=== PATIENT | female | born 1955 | race Caucasian/White ===

== ENCOUNTER → 2017-01-17 | Outpatient (CLI) | payer BC ==
[~2017-01-17] MED LIST: AMLO1CAP4 PO; AMLO1CAP5 PO; ASP81TEC PO; CHOL10007 PO; CRAN500C4 PO; DIPH25CA79 PO; KETO10TA PO; METO-272 PO; METO-274 PO; NITR-65 PO; PHEN-640 PO; ROSU20TA14 PO
--- NOTE | 2017-01-17 17:08 | Diagnostic Imaging Report ---
EXAMINATION: Supine view of the abdomen. INDICATION: Bilateral stones. FINDINGS: There is a 1.5 cm calcification in the right flank probably representing a right kidney stone. Numerous other subcentimeter calcifications mostly below 5 mm in size are seen in both flanks presumably related to bilateral kidney stones. There is a 9 mm calcification in the left side of the pelvis suspected to be within the distal left ureter. Other pelvic calcifications are probably phleboliths. Surgical clips in the upper right abdomen seen. IMPRESSION: 1. A 9 mm calcification in the left side of the pelvis is presumably a distal left ureteric stone. 2. Bilateral numerous flank calcifications are probably related to kidney stones. Dictated by: Dictated on workstation # [id number]
== END ==
LOC: RAD 14:21
PROVIDERS: ATTEND Urology
DX: N20.0 Calculus of kidney (principal)
CPT/HCPCS: 74000

== ENCOUNTER 2017-01-24 13:25 | Outpatient (CLI) | payer BC ==
[~2017-01-24] VITALS: Ht 170.2 cm; Wt 113.4 kg
[2017-01-24] MEDS ORDERED: MELA5CAP PO (15:11)
[2017-01-25] MEDS ORDERED: NITR-65 PO (11:39)
[2017-01-25] MEDS ORDERED: HYDR-3874 PO (11:39)
[2017-01-25] MEDS ORDERED: TAMS0.4C98 PO (11:39)
== END 2017-01-24 16:21 ==
LOC: PREOP 13:25
PROVIDERS: ATTEND Urology
DX: Z01.818 Encounter for other preprocedural examination (principal); N20.0 Calculus of kidney; N20.1 Calculus of ureter

== ENCOUNTER 2017-01-25 08:02 | Day surgery (SDC) | payer BC ==
[~2017-01-25] VITALS: Ht 170.2 cm; Wt 113.4 kg
[~2017-01-25 08:02] MED LIST changes: +MELA5CAP PO
--- NOTE | 2017-01-25 08:29 | Progress Note-Pre Operative ---
Pre-Operative Progress Note H&P Reviewed The H&P was reviewed, patient examined and no changes noted. Date Seen by Provider: Jan 25, 2017 Time Seen by Provider: 08:28 Date H&P Reviewed: Jan 25, 2017 Time H&P Reviewed: 08:28 Pre-Operative Diagnosis: LT DISTAL AND BILATERAL RENAL STONES MARTI CANO MD Jan 25, 2017 8:28 am
[2017-01-25] MEDS ORDERED: CATHETER FLUSH 10 ML SYR IV PRN (08:30)
[2017-01-25] MEDS ORDERED: cefTRIAXone 1 GM/NS 50 ML IVPB IV ONE ×2 (08:30)
--- NOTE | 2017-01-25 09:06 | Diagnostic Imaging Report ---
EXAM: ABDOMEN/KUB 1VIEW. INDICATION: ESWL. COMPARISON: Abdominal radiograph 01/17/2017. FINDINGS: Numerous calcifications in the region of both kidneys, the largest measuring up to 1.5 cm in the region of the lower pole of the right kidney. Numerous calcifications in the pelvis. The largest may be in the region of the left ureterovesicular junction and measures up to 0.9 cm. Nonspecific bowel gas pattern. No acute osseous findings. Moderate degenerative changes in both hips. Cholecystectomy clips. IMPRESSION: Stable calcifications in the region of both kidneys and in the pelvis. Dictated by: Dictated on workstation # [id number]
[2017-01-25] MEDS ORDERED: ONDANSETRON 4 MG/2 ML (SDV) Z0FRAN ONE (09:14)
[2017-01-25] MEDS ORDERED: proPOfol 200 MG/20 ML (DIPRIVAN) VIAL IV ONE (09:14)
[2017-01-25] MEDS ORDERED: SEVOFLURANE (ULTANE) 15 ML INHAL SOLN ONE ×3 (09:14→09:45)
[2017-01-25] MEDS ORDERED: LIDOCAINE PF 2% 5 ML (XYLOCAINE) VIAL ONE (09:14)
[2017-01-25] MEDS ORDERED: fentaNYL INJECTION 100 MCG/2 ML AMP ONE (09:15)
[2017-01-25] MEDS ORDERED: MIDAZOLAM 2 MG/2 ML (VERSED) VIAL ONE (09:15)
[2017-01-25 09:30] VITALS: BP 155/73
[2017-01-25] MEDS ORDERED: LACTATED RINGERS 1,000 ML IV SCH (09:30)
[2017-01-25] MEDS ORDERED: LACTATED RINGERS 1,000 ML IV ONE (09:45)
--- NOTE | 2017-01-25 10:28 | Progress Note-Post Operative ---
Post-Operative Progess Note Surgeon (s)/Healthcare Consulting Manager (s) Surgeon MARTI CANO MD Healthcare Consulting Manager: N/A Pre-Operative Diagnosis LT DISTAL AND BILATERAL RENAL STONES Post-Operative Diagnosis SAME, AND VAGINAL PROLAPSE Procedure & Operative Findings Date of Procedure 01/25/17 Procedure Performed/Findings CYSTO, LT URETEROSCOPY WITH STONE LITHOTRIPSY Anesthesia Type GENERAL Estimated Blood Loss Estimated blood loss (mL): N/A Specimens/Packing Specimens Removed N/A Packing: N/A MARTI CANO MD Jan 25, 2017 10:28 am
--- NOTE | 2017-01-25 10:34 | Discharge Inst-Urology ---
Discharge Inst-Urology Discharge Medications New, Converted, or Re-newed RX: RX on Chart Patient Instructions/Follow Up Plan Please make appointment to been seen in office either Tuesday or Tuesday In 48 hrs, if no bleeding, may resume ASA, and stop it Tuesday Increase oral fluids for 48 hours and then as needed. Diet and Activity as tolerated. If questions or concerns contact your physician Or seek help at emergency department. MARTI CANO MD Jan 25, 2017 10:34 am
[2017-01-25 11:20] VITALS: BP 148/73
[2017-01-25] MEDS ORDERED: TAMS0.4C98 PO (11:39)
[2017-01-25] MEDS ORDERED: NITR-65 PO (11:39)
[2017-01-25] MEDS ORDERED: HYDR-3874 PO (11:39)
[2017-01-25 11:50] VITALS: BP 150/74
[2017-01-25 12:15] VITALS: BP 150/74
--- NOTE | 2017-01-25 15:22 | OPERATIVE REPORT ---
PROCEDURE PHYSICIAN: MARTI CANO DATE OF PROCEDURE: 01/25/2017 PREOPERATIVE DIAGNOSIS: Left distal ureteral and bilateral renal stones. POSTOPERATIVE DIAGNOSES: 1. Left distal ureteral and bilateral renal stones. 2. Vaginal prolapse. OPERATION PERFORMED: 1. Cystoscopy. 2. Left ureteroscopy with stone lithotripsy. SURGEON: Phoebe. ANESTHESIA: General. COMPLICATIONS: None. PROCEDURE: Under satisfactory general anesthesia, the Patient in the lithotomy position, the genitalia were prepped and draped in the usual sterile fashion. Noticed a vaginal prolapse. The cystoscope was introduced in the bladder and was essentially normal except for the prolapse. I dilated the left ureteral orifice, intramural portion ___ the stone to accommodate a 6.9-[place] semirigid ureteroscope. The stone was visualized impacted in the wall of the ureter. I broke it up completely with the lithoclast, disengage it, it was impacted and very small fragments flowed into the bladder. I went beyond the stone. There were no further stone proximally. I removed the ureteroscope, inserted the cystoscope, empty the bladder. The patient tolerated the procedure and anesthesia well and was sent to recovery room in stable condition. PLAN: We will talk to her about the right renal stone if she wants it blasted. The ones on the left side are too small. Job ID: [id number] Dictated Date: 01/25/2017 10:36:06 Battery Charger Date: 01/25/2017 15:07:50 / malcolm
== END 2017-01-25 12:15 | disposition home or self-care (01) ==
LOC: SDC 08:02
PROVIDERS: ATTEND Urology
DX: N20.2 Calculus of kidney with calculus of ureter (principal); N81.10 Cystocele, unspecified; I10 Essential (primary) hypertension; Z79.899 Other long term (current) drug therapy
CPT/HCPCS: 74000; 87081

== ENCOUNTER → 2017-02-08 | Outpatient (CLI) | payer BC ==
[~2017-02-08] MED LIST changes: +HYDR-3874 PO; +HYDR-3875 PO; -METO-274 PO; +METO-395 PO; +NITR-68 PO; +ROSU20TA28 PO; +TAMS0.4C98 PO; +TRAM-42 PO; +TRAM50TA2 PO
== END ==
LOC: PREOP 02-02 05:33
PROVIDERS: ATTEND Urology
DX: Z01.818 Encounter for other preprocedural examination (principal); N20.2 Calculus of kidney with calculus of ureter

== ENCOUNTER → 2017-02-11 | Outpatient (CLI) | payer BC ==
--- NOTE | 2017-02-11 17:53 | Diagnostic Imaging Report ---
INDICATION: Nephrolithiasis. KUB at 12:05 p.m. FINDINGS: There is bilateral nephrolithiasis. Largest on the right kidney is in the inferior pole measuring 1 cm in diameter. There are several smaller calcifications in the upper and lower calyces of the right kidney ranging in size from 1-3 mm in diameter. There are also several small calcifications in the upper and lower pole calyces of the left kidney the largest measuring 3 mm in diameter. IMPRESSION: Bilateral nephrolithiasis. No appreciable change since 01/25/2017. Dictated by: Dictated on workstation # [id number]
== END ==
LOC: RAD 10:45
PROVIDERS: ATTEND Urology
DX: N20.0 Calculus of kidney (principal); Z87.442 Personal history of urinary calculi
CPT/HCPCS: 74000

== ENCOUNTER 2017-02-17 05:40 | Outpatient (CLI) | payer BC ==
[~2017-02-17] VITALS: Ht 170.2 cm; Wt 113.4 kg
[~2017-02-17 05:40] MED LIST changes: -HYDR-3875 PO; -NITR-68 PO; -ROSU20TA28 PO; -TRAM-42 PO; -TRAM50TA2 PO
[2017-04-05] MEDS ORDERED: ROSU20TA28 PO (10:49)
[2017-04-19] MEDS ORDERED: NITR-68 PO (13:03)
== END 2017-02-17 14:29 ==
LOC: PREOP 05:40
PROVIDERS: ATTEND Urology
DX: Z01.818 Encounter for other preprocedural examination (principal); N20.0 Calculus of kidney

== ENCOUNTER 2017-02-22 07:01 | Day surgery (SDC) | payer BC ==
[~2017-02-22] VITALS: Ht 170.2 cm; Wt 113.4 kg
--- NOTE | 2017-02-22 07:00 | Progress Note-Pre Operative ---
Pre-Operative Progress Note H&P Reviewed The H&P was reviewed, patient examined and no changes noted. Date Seen by Provider: Feb 22, 2017 Time Seen by Provider: 07:16 Date H&P Reviewed: Feb 22, 2017 Time H&P Reviewed: 07:16 Pre-Operative Diagnosis: RT RENAL STONE, AND BILATERAL RENAL STONES MARTI CANO MD Feb 22, 2017 7:00 am
[~2017-02-22 07:01] MED LIST changes: +METO-274 PO; -METO-395 PO
[2017-02-22] MEDS ORDERED: NS (IVPB) 50 ML ONE (07:43)
[2017-02-22] MEDS ORDERED: cefTRIAXone 1 GM (ROCEPHIN) VIAL ONE (07:43)
[2017-02-22] MEDS ORDERED: cefTRIAXone 1 GM/NS 50 ML IVPB IV ONE ×2 (08:00)
[2017-02-22] MEDS ORDERED: CATHETER FLUSH 10 ML SYR IV PRN (08:00)
--- NOTE | 2017-02-22 08:03 | Diagnostic Imaging Report ---
INDICATION: Nephrolithiasis. Comparison is made with prior examination from 02/11/17. FINDINGS: There are innumerable persistent calcifications in the kidneys bilaterally. The largest is in the inferior pole of the right kidney and measures approximately 1 cm. The bowel gas pattern is nonspecific. The osseous structures are unremarkable. IMPRESSION: Marked bilateral nephrolithiasis with the largest discrete stone inferiorly on the right measuring approximately 1 cm. Dictated by: Dictated on workstation # [id number]
[2017-02-22 08:21] VITALS: BP 190/93
[2017-02-22] MEDS: LACTATED RINGERS 1,000 ML IV PRN ×2 (08:23→09:30)
[2017-02-22] MEDS ORDERED: MIDAZOLAM 2 MG/2 ML (VERSED) VIAL ONE (08:40)
[2017-02-22] MEDS ORDERED: ONDANSETRON 4 MG/2 ML (SDV) Z0FRAN ONE (08:40)
[2017-02-22] MEDS ORDERED: LIDOCAINE PF 2% 5 ML (XYLOCAINE) VIAL ONE (08:40)
[2017-02-22] MEDS ORDERED: fentaNYL INJECTION 100 MCG/2 ML AMP ONE (08:40)
[2017-02-22] MEDS ORDERED: LACTATED RINGERS 1,000 ML IV ONE ×2 (08:40→09:35)
[2017-02-22] MEDS ORDERED: FUROSEMIDE 40 MG/4 ML INJ (LASIX) ONE (08:40)
[2017-02-22] MEDS ORDERED: DEXAMETHASONE 10 MG/ML (DECADRON) 1 ML VIAL ONE (08:40)
[2017-02-22] MEDS ORDERED: proPOfol 200 MG/20 ML (DIPRIVAN) VIAL IV ONE (08:40)
[2017-02-22] MEDS ORDERED: SEVOFLURANE (ULTANE) 15 ML INHAL SOLN ONE (08:40)
--- NOTE | 2017-02-22 09:29 | Progress Note-Post Operative ---
Post-Operative Progess Note Surgeon (s)/Circular Knife Cutter Machine (s) Surgeon MARTI CANO MD Circular Knife Cutter Machine: N/A Pre-Operative Diagnosis RT RENAL STONE, AND BILATERAL RENAL STONES Post-Operative Diagnosis SAME Procedure & Operative Findings Date of Procedure 02/22/17 Procedure Performed/Findings RT ESWL Anesthesia Type GENERAL Estimated Blood Loss Estimated blood loss (mL): N/A Specimens/Packing Specimens Removed N/A Packing: N/A MARTI CANO MD Feb 22, 2017 9:29 am
--- NOTE | 2017-02-22 09:32 | Discharge Inst-Urology ---
Discharge Inst-Urology Discharge Medications New, Converted, or Re-newed RX: RX on Chart Patient Instructions/Follow Up Plan Please make appointment to been seen in office Wednesday 03/07, KUB prior to it KUB on way home Post ESWL instructions Increase oral fluids for 48 hours and then as needed. Diet and Activity as tolerated. If questions or concerns contact your physician Or seek help at emergency department. MARTI CANO MD Feb 22, 2017 9:32 am
[2017-02-22 10:30] VITALS: BP 161/81
[2017-02-22] MEDS ORDERED: NITR-65 PO (10:39)
[2017-02-22] MEDS ORDERED: TAMS0.4C98 PO (10:39)
[2017-02-22] MEDS ORDERED: HYDR-3875 PO (10:39)
[2017-02-22 11:00] VITALS: BP 161/89
--- NOTE | 2017-02-22 11:49 | Diagnostic Imaging Report ---
INDICATION: Nephrolithiasis. FINDINGS: The lung bases are clear. Bowel gas pattern is nonspecific. Surgical clips in the right upper quadrant. There are numerous stones in the kidneys bilaterally. Largest stone in the inferior aspect of the right kidney appears somewhat fragmented compared to prior examination. There now appears to be a 4-mm stone in the mid right ureter at the level of the L4 transverse process. There are several round calcifications in the pelvis likely phleboliths. These are essentially unchanged. IMPRESSION: Extensive bilateral nephrolithiasis. There has been interval fragmentation of the largest stone in the inferior aspect of the right kidney. There is now a 4-mm stone in the mid right ureter. Dictated by: Dictated on workstation # [id number]
[2017-02-22 12:00] VITALS: BP 161/89
--- NOTE | 2017-02-22 13:49 | OPERATIVE REPORT ---
DATE OF SERVICE: 02/22/2017 PREOPERATIVE DIAGNOSIS: Bilateral renal stones. POSTOPERATIVE DIAGNOSIS: Bilateral renal stones. OPERATION PERFORMED: Right ESWL. SURGEON: Rocco Cano MD ANESTHESIA: General. COMPLICATIONS: None. PROCEDURE IN DETAIL: Under satisfactory general anesthesia with the patient in supine position on the ESWL table, the large right lower pole renal stone was localized. Shocks were delivered at kV of 5. A total of 2500 shocks fragmented the stone; however, I do not think completely. The patient received 30 mg of Toradol and 40 mg of Lasix IV. She tolerated the procedure and anesthesia well and was sent to the recovery room in stable condition. PLAN: We will reevaluate her in 2 weeks. If she still have ____ still there, we will discuss again either ESWL or percutaneous at . Job ID: [id number] DocumentID: [id number] Dictated Date: 02/22/2017 09:34:23 Sliver Lap Machine Tender Date: 02/22/2017 10:20:18 Dictated By: ROCCO CANO MD
== END 2017-02-22 12:00 | disposition home or self-care (01) ==
LOC: SDC 07:01
PROVIDERS: ATTEND Urology
DX: N20.0 Calculus of kidney (principal); I10 Essential (primary) hypertension; Z79.899 Other long term (current) drug therapy
CPT/HCPCS: 74000; 87081

== ENCOUNTER 2017-02-25 09:33 | Day surgery (SDC) | payer BC ==
[~2017-02-25] VITALS: Ht 170.2 cm; Wt 113.4 kg
[~2017-02-25 09:33] MED LIST changes: +HYDR-3875 PO; -METO-274 PO; +METO-395 PO
[2017-02-25] MEDS ORDERED: cefTRIAXone 1 GM (ROCEPHIN) VIAL ONE (09:40)
[2017-02-25] MEDS ORDERED: NS (IVPB) 50 ML ONE (09:40)
[2017-02-25] MEDS ORDERED: cefTRIAXone 1 GM/NS 50 ML IVPB IV ONE ×2 (09:45)
[2017-02-25] MEDS ORDERED: CATHETER FLUSH 10 ML SYR IV PRN (09:45)
[2017-02-25 09:55] VITALS: BP 175/75
[2017-02-25] MEDS ORDERED: LACTATED RINGERS 1,000 ML IV PRN (10:10)
[2017-02-25] MEDS ORDERED: MIDAZOLAM 2 MG/2 ML (VERSED) VIAL ONE (11:28)
[2017-02-25] MEDS ORDERED: fentaNYL INJECTION 100 MCG/2 ML AMP ONE (11:28)
--- NOTE | 2017-02-25 11:35 | Progress Note-Pre Operative ---
Pre-Operative Progress Note H&P Reviewed The H&P was reviewed, patient examined and no changes noted. Date Seen by Provider: Feb 25, 2017 Time Seen by Provider: 11:35 Date H&P Reviewed: Feb 25, 2017 Time H&P Reviewed: 11:35 Pre-Operative Diagnosis: RT DISTAL URETERAL AND BILATERAL RENAL STONES MARTI CANO MD Feb 25, 2017 11:35 am
[2017-02-25] MEDS ORDERED: NEOSTIGMINE (BLOXIVERZ ) 1 MG/1ML 10 ML VIAL ONE ×2 (12:06→12:09)
[2017-02-25] MEDS ORDERED: GLYCOPYRROLATE 0.2 MG/ML (ROBINUL) 2 ML VIAL ONE ×2 (12:06→12:09)
[2017-02-25] MEDS ORDERED: ROCURONIUM 50 MG/5 ML (ZEMURON) VIAL IV ONE (12:06)
[2017-02-25] MEDS ORDERED: DEXAMETHASONE 10 MG/ML (DECADRON) 1 ML VIAL ONE (12:06)
[2017-02-25] MEDS ORDERED: ONDANSETRON 4 MG/2 ML (SDV) Z0FRAN ONE (12:06)
[2017-02-25] MEDS ORDERED: proPOfol 200 MG/20 ML (DIPRIVAN) VIAL IV ONE (12:06)
[2017-02-25] MEDS ORDERED: LACTATED RINGERS 1,000 ML IV ONE (12:06)
[2017-02-25] MEDS ORDERED: LIDOCAINE PF 2% 5 ML (XYLOCAINE) VIAL ONE (12:06)
[2017-02-25] MEDS ORDERED: SEVOFLURANE (ULTANE) 15 ML INHAL SOLN ONE (12:06)
--- NOTE | 2017-02-25 12:25 | Progress Note-Post Operative ---
Post-Operative Progess Note Surgeon (s)/Engineering Equipment Operator (s) Surgeon MARTI CANO MD Engineering Equipment Operator: N/A Pre-Operative Diagnosis RT DISTAL URETERAL AND BILATERAL RENAL STONES Post-Operative Diagnosis SAME Procedure & Operative Findings Date of Procedure 02/25/17 Procedure Performed/Findings RT URETEROSCOPY WITH STONE LITHOTRIPSY AND JJ STENT Anesthesia Type GENERAL Estimated Blood Loss Estimated blood loss (mL): N/A Specimens/Packing Specimens Removed N/A Packing: N/A MARTI CANO MD Feb 25, 2017 12:25 pm
--- NOTE | 2017-02-25 12:27 | Discharge Inst-Urology ---
Discharge Inst-Urology Discharge Medications New, Converted, or Re-newed RX: RX on Chart Patient Instructions/Follow Up Plan Keep previous F/U appointment Increase oral fluids for 48 hours and then as needed. Diet and Activity as tolerated. If questions or concerns contact your physician Or seek help at emergency department. MARTI CANO MD Feb 25, 2017 12:27 pm
[2017-02-25] MEDS ORDERED: morphine INJ 10 MG/ML 1ML (SYR OR VIAL) IVP PRN (12:45)
[2017-02-25] MEDS ORDERED: ONDANSETRON 4 MG/2 ML (SDV) Z0FRAN IVP PRN (12:45)
[2017-02-25] MEDS ORDERED: FUROSEMIDE 40 MG/4 ML INJ (LASIX) ONE (13:15)
[2017-02-25] MEDS ORDERED: TRAM50TA2 PO (13:19)
[2017-02-25] MEDS ORDERED: TAMS0.4C98 PO (13:19)
[2017-02-25] MEDS ORDERED: PHEN-640 PO (13:19)
[2017-02-25 13:25] VITALS: BP 169/80
[2017-02-25 13:55] VITALS: BP 159/79
--- NOTE | 2017-02-26 07:55 | OPERATIVE REPORT ---
DATE OF SERVICE: 02/25/2017 PREOPERATIVE DIAGNOSES: 1. Right distal urethral stone. 2. Bilateral renal stones. OPERATION PERFORMED: Cystoscopy, right ureteroscopy with stone lithotripsy and insertion of double J stent. SURGEON: Rocco Cano MD ANESTHESIA: General. COMPLICATIONS: None. PROCEDURE: Under satisfactory general anesthesia, the patient in the lithotomy position, genitalia were prepped and draped in usual sterile fashion. A cystoscope was introduced under direct vision. The stone was seen in the intramural portion protruding slightly through the orifice. I tried to grab it with a grasping forceps but I was unsuccessful so I removed the cystoscope, inserted the urethroscope, visualized the stone and broke it up completely with a Lithoclast. Most fragments went into the bladder. I went all the way up to the kidney chasing any residual fragments. There was a stone in the renal pelvis. I broke it up as well. Went back antegrade. There were no further stones. I elected to leave a stent for many reasons to protect her if she developed any fragments especially with the long weekend coming up and #2, stabilize the situation until we ESWL again the stone fragments. I passed a 6-Lux[place]bourgish 26 cm double J stent through the cystoscope all the way up to the right renal pelvis, guided fluoroscopically. The guidewire was removed and the stent was seen Tish nicely proximally by fluoroscopy and distally endoscopically. Bladder was evacuated and the cystoscope removed. The patient tolerated the procedure and anesthesia well and was sent to recovery room in stable condition. PLAN: Will set her up for the for ESWL of the kidney stone so will see her back on Tuesday, the , to plan that. Job ID: [id number] DocumentID: [id number] Dictated Date: 02/25/2017 12:30:19 Family Medicine Resident Date: 02/26/2017 07:54:51 Dictated By: ROCCO CANO MD [facility]
[2017-04-05] MEDS ORDERED: ROSU20TA28 PO (10:49)
[2017-04-19] MEDS ORDERED: NITR-68 PO (13:03)
== END 2017-02-25 14:10 | disposition home or self-care (01) ==
LOC: SDC 09:33
PROVIDERS: ATTEND Urology
DX: N20.1 Calculus of ureter (principal); N20.0 Calculus of kidney; I10 Essential (primary) hypertension; E78.00 Pure hypercholesterolemia, unspecified
CPT/HCPCS: 87081

== ENCOUNTER → 2017-04-04 | Outpatient (CLI) | payer BC ==
[~2017-04-04] MED LIST changes: +METO-274 PO; -METO-395 PO; +NITR-68 PO; +ROSU20TA28 PO; +TRAM-42 PO; +TRAM50TA2 PO
--- NOTE | 2017-04-04 14:22 | Diagnostic Imaging Report ---
EXAMINATION: Supine view of the abdomen. INDICATION: Renal stones. FINDINGS: There is a right ureteric stent placed. There are calcifications seen along the mid to distal left ureter which may relate to stone fragments adjacent to the stent. There are also multiple calcifications in both flanks up to 8 mm in size and the right flank suggestive of kidney stones. The calcifications on the left side are up to 4 mm also likely related to stones. IMPRESSION: Right ureteric stent is placed with suggestion of a stone fragments along the mid to distal right ureter. Bilateral kidney stones. Dictated by: Dictated on workstation # [id number]
== END ==
LOC: RAD 13:47
PROVIDERS: ATTEND Urology
DX: N20.0 Calculus of kidney (principal); Z96.0 Presence of urogenital implants
CPT/HCPCS: 74000

== ENCOUNTER 2017-04-05 11:03 | Outpatient (CLI) | payer BC ==
[~2017-04-05] VITALS: Ht 170.2 cm; Wt 113.4 kg
[~2017-04-05 11:03] MED LIST changes: -NITR-68 PO; -TRAM-42 PO
[2017-04-06] MEDS ORDERED: TAMS0.4C98 PO (09:21)
[2017-04-06] MEDS ORDERED: NITR-68 PO (09:21)
[2017-04-06] MEDS ORDERED: TRAM-42 PO (09:21)
== END 2017-04-05 11:08 ==
LOC: PREOP 11:03
PROVIDERS: ATTEND Urology
DX: Z01.818 Encounter for other preprocedural examination (principal); N20.0 Calculus of kidney

== ENCOUNTER 2017-04-06 06:03 | Day surgery (SDC) | payer BC ==
[~2017-04-06] VITALS: Ht 170.2 cm; Wt 113.4 kg
[2017-04-06] MEDS ORDERED: NS (IVPB) 50 ML ONE (06:30)
[2017-04-06] MEDS ORDERED: cefTRIAXone 1 GM (ROCEPHIN) VIAL ONE (06:30)
[2017-04-06] MEDS ORDERED: ONDANSETRON 4 MG/2 ML (SDV) Z0FRAN IV ONE (06:45)
[2017-04-06] MEDS ORDERED: FAMOTIDINE 20MG/2ML IV (PEPCID) IV ONE (06:45)
[2017-04-06] MEDS: LACTATED RINGERS 1,000 ML IV PRN ×2 (06:46→07:40)
[2017-04-06] MEDS ORDERED: MIDAZOLAM 2 MG/2 ML (VERSED) VIAL ONE (06:57)
[2017-04-06] MEDS ORDERED: fentaNYL INJECTION 100 MCG/2 ML AMP ONE (06:57)
[2017-04-06] MEDS ORDERED: DEXAMETHASONE 10 MG/ML (DECADRON) 1 ML VIAL ONE (07:00)
[2017-04-06] MEDS ORDERED: ONDANSETRON 4 MG/2 ML (SDV) Z0FRAN ONE (07:00)
[2017-04-06] MEDS ORDERED: SEVOFLURANE (ULTANE) 15 ML INHAL SOLN ONE (07:00)
[2017-04-06] MEDS ORDERED: FUROSEMIDE 40 MG/4 ML INJ (LASIX) ONE (07:00)
[2017-04-06] MEDS ORDERED: LIDOCAINE PF 2% 5 ML (XYLOCAINE) VIAL ONE (07:00)
[2017-04-06] MEDS ORDERED: proPOfol 200 MG/20 ML (DIPRIVAN) VIAL IV ONE (07:00)
--- NOTE | 2017-04-06 07:05 | Diagnostic Imaging Report ---
INDICATION: Urinary tract calculi. Supine images of the abdomen are obtained with comparison made to study of 04/04/2017. FINDINGS: Right double-J nephroureteral stent remains in stable position. There continued to be small calcifications along the course of the stent at the level of the mid to distal ureter. Numerous bilateral renal calculi has a stable appearance. There are also bilateral calcified phleboliths. 0.4 cm calcification projecting over the left sacrum may be due to atherosclerosis. IMPRESSION: Numerous bilateral renal calculi has a stable appearance as do calcifications along the right double-J nephroureteral stent just below the pelvic brim. Dictated by: Dictated on workstation # [id number]
--- NOTE | 2017-04-06 07:06 | Progress Note-Pre Operative ---
Pre-Operative Progress Note H&P Reviewed The H&P was reviewed, patient examined and no changes noted. Date Seen by Provider: Apr 06, 2017 Time Seen by Provider: 07:05 Date H&P Reviewed: Apr 06, 2017 Time H&P Reviewed: 07:06 Pre-Operative Diagnosis: RT RENAL STONES MARTI CANO MD Apr 06, 2017 7:06 am
[2017-04-06] MEDS ORDERED: cefTRIAXone 1 GM/NS 50 ML IVPB IV NR ×2 (07:15)
[2017-04-06 07:22] VITALS: BP 176/83
--- NOTE | 2017-04-06 07:38 | Discharge Inst-Urology ---
Discharge Inst-Urology Discharge Medications New, Converted, or Re-newed RX: RX on Chart Patient Instructions/Follow Up Plan Please make appointment to been seen in office Wednesday 04/18, KUB prior to it KUB on way home Post ESWL instructions Increase oral fluids for 48 hours and then as needed. Diet and Activity as tolerated. If questions or concerns contact your physician Or seek help at emergency department. MARTI CANO MD Apr 06, 2017 7:38 am
--- NOTE | 2017-04-06 07:41 | Progress Note-Post Operative ---
Post-Operative Progess Note Surgeon (s)/Catering Barista (s) Surgeon MARTI CANO MD Catering Barista: N/A Pre-Operative Diagnosis RT RENAL STONES Post-Operative Diagnosis SAME Procedure & Operative Findings Date of Procedure 04/06/17 Procedure Performed/Findings RT ESWL Anesthesia Type GENERAL Estimated Blood Loss Estimated blood loss (mL): N/A Specimens/Packing Specimens Removed N/A Packing: N/A MARTI CANO MD Apr 06, 2017 7:41 am
[2017-04-06] MEDS ORDERED: morphine INJ 10 MG/ML 1ML (SYR OR VIAL) IVP PRN (08:15)
[2017-04-06] MEDS ORDERED: ONDANSETRON 4 MG/2 ML (SDV) Z0FRAN IVP PRN (08:15)
[2017-04-06 08:55] VITALS: BP 151/77
[2017-04-06] MEDS ORDERED: TAMS0.4C98 PO (09:21)
[2017-04-06] MEDS ORDERED: NITR-68 PO (09:21)
[2017-04-06] MEDS ORDERED: TRAM-42 PO (09:21)
[2017-04-06 09:25] VITALS: BP 140/69
[2017-04-06 10:00] VITALS: BP 140/69
--- NOTE | 2017-04-06 12:19 | Diagnostic Imaging Report ---
EXAMINATION: Supine view of the abdomen. INDICATION: Post lithotripsy evaluation. FINDINGS: There are multiple bilateral flank calcifications projecting over the kidneys suggestive of stones. This is up to 1 cm on the right side and 0.7 cm on the left. There is a right ureteric stent. There is a calcification measuring 7 mm seen along the distal aspect of the right ureteric stent presumably related to a stone or stone fragment in the distal right ureter. Other multiple calcifications are seen in the pelvis which could relate to phleboliths. IMPRESSION: Findings suggestive of bilateral kidney stones. There is a 7 mm calcification along the distal aspect of the right ureteric stent, may relate to ureteric stone or stone fragment. Dictated by: Dictated on workstation # [id number]
--- NOTE | 2017-04-07 13:09 | OPERATIVE REPORT ---
DATE OF SERVICE: 04/06/2017 PREOPERATIVE DIAGNOSIS: Bilateral renal stones. POSTOPERATIVE DIAGNOSIS: Bilateral renal stones. OPERATION PERFORMED: Right ESWL. SURGEON: Rocco Cano M.D. ANESTHESIA: General. COMPLICATIONS: None. PROCEDURE: Under satisfactory general anesthesia, the patient in supine position on the ESWL table, the right renal stone was localized and shocks were delivered at kV of 5. A total of 2500 shocks showed fairly good results on the fluoroscopy. The patient received 40 mg of Lasix and 30 mg of Toradol IV at the end of the procedure. She tolerated the procedure and anesthesia well and was sent to recovery room in stable condition. Job ID: [id number] DocumentID: [id number] Dictated Date: 04/06/2017 07:52:31 Food And Beverage Cashier Date: 04/06/2017 15:27:04 Dictated By: ROCCO CANO MD
== END 2017-04-06 10:00 | disposition home or self-care (01) ==
LOC: SDC 06:03
PROVIDERS: ATTEND Urology
DX: N20.0 Calculus of kidney (principal); I10 Essential (primary) hypertension; Z79.899 Other long term (current) drug therapy
CPT/HCPCS: 74000; 87081

== ENCOUNTER 2017-04-18 13:00 | Outpatient (CLI) | payer BC ==
[~2017-04-18] VITALS: Ht 170.2 cm; Wt 113.4 kg
[2017-04-19] MEDS ORDERED: NITR-68 PO (13:03)
== END 2017-04-18 15:11 ==
LOC: PREOP 13:00
PROVIDERS: ATTEND Urology
DX: Z01.818 Encounter for other preprocedural examination (principal); N20.0 Calculus of kidney

== ENCOUNTER → 2017-04-18 | Outpatient (CLI) | payer BC ==
[~2017-04-18] MED LIST changes: +NITR-68 PO; +TRAM-42 PO
--- NOTE | 2017-04-18 14:04 | Diagnostic Imaging Report ---
Supine view of the abdomen. INDICATION: Bilateral renal stones. COMPARISON: 04/06/2017. FINDINGS: There is a right ureteric stent in place. Multiple renal stones are seen bilaterally up to 1.2 cm in the lower pole of the right kidney and up to 0.4 cm on the left. There is suggestion of stone fragments seen along the mid to distal right ureter along the ureteric stent. Other calcifications in the pelvis are likely phleboliths and in the midline probably related to uterine fibroids. IMPRESSION: Bilateral kidney stones and suggestion of tiny stone fragments along the mid to distal right ureter along the ureteric stent. Dictated by: Dictated on workstation # [id number]
== END ==
LOC: RAD 12:15
PROVIDERS: ATTEND Urology
DX: N20.0 Calculus of kidney (principal)
CPT/HCPCS: 74000

== ENCOUNTER 2017-04-19 08:34 | Day surgery (SDC) | payer BC ==
[~2017-04-19] VITALS: Ht 170.2 cm; Wt 113.4 kg
[2017-04-19] MEDS ORDERED: LACTATED RINGERS 1,000 ML IV PRN (09:04)
--- NOTE | 2017-04-19 09:07 | Progress Note-Pre Operative ---
Pre-Operative Progress Note H&P Reviewed The H&P was reviewed, patient examined and no changes noted. Date Seen by Provider: Apr 19, 2017 Time Seen by Provider: 09:07 Date H&P Reviewed: Apr 19, 2017 Time H&P Reviewed: 09:07 Pre-Operative Diagnosis: RT RENAL STONE MARTI CANO MD Apr 19, 2017 9:07 am
[2017-04-19] MEDS ORDERED: cefTRIAXone 1 GM/NS 50 ML IVPB IV ONE ×2 (09:15)
[2017-04-19] MEDS ORDERED: CATHETER FLUSH 10 ML SYR IV PRN (09:15)
[2017-04-19] MEDS ORDERED: FAMOTIDINE 20MG/2ML IV (PEPCID) IV ONE (09:15)
[2017-04-19] MEDS ORDERED: PHENYLEPHRINE 0.25% NASAL SPR (NEO-SYNEPHRINE) 15 ML NS ONE (09:15)
[2017-04-19] MEDS ORDERED: ONDANSETRON 4 MG/2 ML (SDV) Z0FRAN IV ONE (09:15)
[2017-04-19 09:20] VITALS: BP 157/73
--- NOTE | 2017-04-19 09:40 | Diagnostic Imaging Report ---
Supine view of the abdomen. INDICATION: Urinary tract stones. Findings: There are bilateral kidney stones up to 8mm in the right kidney and up to 4 mm in the left kidney. There is a ureteric stent on the right side with a 5 mm stone along the distal aspect of the stent just below the level of the SI joint. Other calcifications in the pelvis are likely phleboliths. IMPRESSION: Bilateral nephrolithiasis. 5 mm stone along the distal aspect of the right ureteric stent. Dictated by: Dictated on workstation # [id number]
[2017-04-19] MEDS ORDERED: LIDOCAINE PF 2% 5 ML (XYLOCAINE) VIAL ONE (10:05)
[2017-04-19] MEDS ORDERED: SEVOFLURANE (ULTANE) 15 ML INHAL SOLN ONE ×3 (10:05→10:32)
[2017-04-19] MEDS ORDERED: proPOfol 200 MG/20 ML (DIPRIVAN) VIAL IV ONE (10:05)
[2017-04-19] MEDS ORDERED: MIDAZOLAM 2 MG/2 ML (VERSED) VIAL ONE (10:05)
[2017-04-19] MEDS ORDERED: fentaNYL INJECTION 100 MCG/2 ML AMP ONE (10:08)
--- NOTE | 2017-04-19 10:29 | Discharge Inst-Urology ---
Discharge Inst-Urology Discharge Medications New, Converted, or Re-newed RX: RX on Chart Patient Instructions/Follow Up Plan Please make appointment to been seen in office Wednesday 05/[address] Post ESWL instructions Increase oral fluids for 48 hours and then as needed. Diet and Activity as tolerated. If questions or concerns contact your physician Or seek help at emergency department. MARTI CANO MD Apr 19, 2017 10:29 am
[2017-04-19] MEDS ORDERED: DEXAMETHASONE 10 MG/ML (DECADRON) 1 ML VIAL ONE (10:32)
[2017-04-19] MEDS ORDERED: FUROSEMIDE 40 MG/4 ML INJ (LASIX) ONE (10:32)
[2017-04-19] MEDS ORDERED: ONDANSETRON 4 MG/2 ML (SDV) Z0FRAN ONE (10:32)
--- NOTE | 2017-04-19 10:33 | Progress Note-Post Operative ---
Post-Operative Progess Note Surgeon (s)/Clutch Rebuilder (s) Surgeon MARTI CANO MD Clutch Rebuilder: N/A Pre-Operative Diagnosis RT RENAL STONE Post-Operative Diagnosis SAME Procedure & Operative Findings Date of Procedure 04/19/17 Procedure Performed/Findings RT ESWL Anesthesia Type G/A Estimated Blood Loss Estimated blood loss (mL): N/A Specimens/Packing Specimens Removed N/A Packing: N/A MARTI CANO MD Apr 19, 2017 10:33 am
[2017-04-19] MEDS ORDERED: morphine INJ 10 MG/ML 1ML (SYR OR VIAL) IVP PRN (11:15)
[2017-04-19] MEDS ORDERED: ONDANSETRON 4 MG/2 ML (SDV) Z0FRAN IVP PRN (11:15)
[2017-04-19 11:45] VITALS: BP 170/90
[2017-04-19 12:15] VITALS: BP 168/88
[2017-04-19 12:45] VITALS: BP 150/81
[2017-04-19] MEDS ORDERED: NITR-68 PO ×2 (13:03)
[2017-04-19 13:30] VITALS: BP 150/81
--- NOTE | 2017-04-19 13:49 | Diagnostic Imaging Report ---
EXAMINATION: Supine view of the abdomen. INDICATION: Post lithotripsy. FINDINGS: There is interval fragmentation of stones into numerous fragments within the right kidney and unchanged stone seen in the left kidney. There are calcifications noted along the distal aspect of the right ureter along the ureteric stent seen. IMPRESSION: Stone fragments in the right kidney post lithotripsy is seen. There is also a stone fragment measuring about 5 mm along the distal aspect of the right ureteric stone. There are also left kidney stones. Dictated by: Dictated on workstation # [id number]
--- NOTE | 2017-04-20 02:17 | OPERATIVE REPORT ---
DATE OF SERVICE: 04/19/2017 PREOPERATIVE DIAGNOSIS: Right renal stones. POSTOPERATIVE DIAGNOSIS: Right renal stones. OPERATION PERFORMED: Right ESWL. SURGEON: Rocco Cano MD ANESTHESIA: General. COMPLICATIONS: None. DESCRIPTION OF PROCEDURE: Under satisfactory anesthesia, the patient in supine position on the ESWL table, the right renal stones were localized and re-localized during the procedure to get them all. A total of 3000 shocks seemed to have fragmented the stones nicely. The patient received 40 mg of Lasix and 30 mg of Toradol IV at the end of the procedure. She tolerated the procedure and anesthesia well and was sent to recovery room in stable condition. Job ID: [id number] DocumentID: [id number] Dictated Date: 04/19/2017 10:40:42 Facetor Date: 04/19/2017 19:41:12 Dictated By: ROCCO CANO MD
== END 2017-04-19 13:30 | disposition home or self-care (01) ==
LOC: SDC 08:34
PROVIDERS: ATTEND Urology
DX: N20.0 Calculus of kidney (principal); Z11.2 Encounter for screening for other bacterial diseases; I10 Essential (primary) hypertension; E78.5 Hyperlipidemia, unspecified; G47.33 Obstructive sleep apnea (adult) (pediatric); Z79.899 Other long term (current) drug therapy
CPT/HCPCS: 74000; 87081

== ENCOUNTER → 2020-06-04 | Outpatient (CLI) | payer BC ==
[~2020-06-04] MED LIST changes: +HYDR-3870 PO; -HYDR-3874 PO; -METO-274 PO; +MTP100TCR PO; -ROSU20TA28 PO; +ROSU20TA32 PO; -TAMS0.4C98 PO; +TMSL.4C PO; -TRAM50TA2 PO; +TRM50T PO
--- NOTE | 2020-06-04 15:31 | Diagnostic Imaging Report ---
INDICATION: Right flank pain. COMPARISON: 05/02/2017. FINDINGS: Two frontal radiographic views of the abdomen were obtained. The previously placed right-sided double-J ureteral stent has since been removed. Extensive bilateral nephrolithiasis is again identified. Multiple extraosseous calcifications are also seen projecting over the pelvis. No unexpected radiopaque foreign bodies are identified. The small bowel loops are nondistended. There is no large collection of free intraperitoneal air. The osseous structures show age-related degenerative changes. IMPRESSION: 1. Prominent bilateral nephrolithiasis. 2. Nonobstructed small bowel gas pattern. Dictated by: Dictated on workstation # [id number]
== END ==
LOC: RAD 14:25
PROVIDERS: ATTEND Urology
DX: N20.0 Calculus of kidney (principal); Z98.890 Other specified postprocedural states
CPT/HCPCS: 74018